=== PATIENT | female | born 2000 | race Two or more races ===

== ENCOUNTER 2022-11-01 21:11 | Emergency (ER) | payer BC, OTHER ==
[~2022-11-01] VITALS: Ht 180.3 cm; Wt 102.9 kg
[2022-11-01 22:33] LABS: Basophils # (auto) 0 10 ^3/uL (0-0.2); Eosinophils # (auto) 0.1 10 ^3/uL (0-0.8); Lymphocytes # (auto) 2.1 10 ^3/uL (0.4-5.4); Monocytes # (auto) 0.8 10 ^3/uL (0-1.3)
[2022-11-01 22:34] LABS: Basophils % (auto) 0.3 % (0.0-2.0); Eosinophils % (auto) 1.6 % (0.0-7.0); Hematocrit 34.6 % (36.0-46.0); Lymphocytes % (auto) 22.9 % (10.0-50.0); Monocytes % (auto) 8.8 % (0.0-12.0); Neutrophils # (auto) 6.1 10 ^3/uL (1.6-8.6); Neutrophils % (auto) 66.4 % (37.0-80.0); Red Cell Distribution Width 17.4 % (11.8-14.3); White Blood Cell 9.2 10^3/uL (4.4-10.8)
[2022-11-01 22:37] LABS: Urine Bacteria FEW /hpf (None Seen); Urine Blood 2+ /uL (Negative); Urine Mucus FEW (None Seen); Urine Specific Gravity 1.029 (1.001-1.035); Urine WBC 1 /hpf (0 - 5)
[2022-11-01 22:56] LABS: Albumin 3.2 g/dL (3.4-5.0); Calcium 8.8 mg/dL (8.5-10.1); Potassium 3.7 mmol/L (3.5-5.1)
[2022-11-01 23:00] LABS: BUN/Creatinine Ratio 8.6 (10.0-20.0); Bilirubin, Total 0.4 mg/dL (0.2-1.0); Total Protein 8.3 g/dL (6.4-8.2)
[2022-11-02] MEDS ORDERED: HYDROcodone-ACET 5/325MG TAB PO ONE (02:00)
[2022-11-02] MEDS ORDERED: ONDANSETRON ODT 4 MG TAB PO ONE (02:00)
[2022-11-02] MEDS ORDERED: ZOFR4T PO (02:02)
[2022-11-02] MEDS ORDERED: DICY10CA PO (02:02)
[2022-11-02] MEDS ORDERED: AUG875T PO (02:02)
[2022-11-02 02:45] VITALS: BP 110/63
== END 2022-11-02 02:03 | disposition home or self-care (01) ==
LOC: ER 21:15
DX: N83.202 Unspecified ovarian cyst, left side (principal); R10.32 Left lower quadrant pain; R10.12 Left upper quadrant pain; R10.2 Pelvic and perineal pain; K52.9 Noninfective gastroenteritis and colitis, unspecified; I88.0 Nonspecific mesenteric lymphadenitis; R11.2 Nausea with vomiting, unspecified; Z79.899 Other long term (current) drug therapy; Z91.013 Allergy to seafood
CPT/HCPCS: 36415; 74176; 76830; 76856; 80053; 81001; 81025; 83690; 85025